=== PATIENT | female | born 1995 | race Caucasian/White ===

== ENCOUNTER 2024-03-01 23:20 | Emergency (ER) | payer OTHER ==
[2024-03-01 23:52] VITALS: BP 99/67; PULSE 72; RESP 17; TEMP 97.9; BMI 24.0
== END 2024-03-02 01:05 | disposition home or self-care (01) ==
LOC: FER 23:20
DX: R07.89 Other chest pain (principal); R00.2 Palpitations; R06.02 Shortness of breath; F41.9 Anxiety disorder, unspecified
CPT/HCPCS: 71046-TC-FY; 93005; 99284-25